=== PATIENT | female | born 1980 | race African-American/Black ===

== ENCOUNTER 2017-09-02 23:42 | Emergency (ER) | payer SELFPAY ==
[~2017-09-02] VITALS: Ht 170.2 cm; Wt 80.0 kg
[2017-09-03] MEDS ORDERED: TETANUS, DIPHTHERIA, PERTUSSIS VAC/PF 0.5ML (>7YR OLD) IM ONE (03:15)
[2017-09-03] MEDS ORDERED: HYDROCODONE/ACETAMINOPHEN 5/325MG TABLET PO ONE (03:15)
[2017-09-03] MEDS ORDERED: MORPHINE SULFATE 4 MG/ML CPJ (NOT FOR IM USE) IV ONE (04:15)
[2017-09-03] MEDS ORDERED: ONDANSETRON HCL 4MG/2ML VIAL IV ONE (04:15)
[2017-09-03 04:37] VITALS: BP 110/50
[2017-09-03] MEDS ORDERED: BACITRACIN ZINC OINT UDPKT TOP ONE (05:30)
== END 2017-09-03 07:30 | disposition home or self-care (01) ==
LOC: ER 23:42
DX: S82.892A Other fracture of left lower leg, initial encounter for closed fracture (principal); S90.512A Abrasion, left ankle, initial encounter; V49.9XXA Car occupant (driver) (passenger) injured in unspecified traffic accident, initial encounter; Y93.89 Activity, other specified; Y92.89 Other specified places as the place of occurrence of the external cause; Y99.8 Other external cause status; F17.200 Nicotine dependence, unspecified, uncomplicated
CPT/HCPCS: 29515; 73130; 73610; 73630; 81025; 90471; 90715; 96374; 96375; 99284; J2270; J2405; Z7610